=== PATIENT | male | born 1945 | race Caucasian/White ===

== ENCOUNTER 2016-12-16 03:29 | Emergency (ER) | payer MEDICARE | END 2016-12-16 06:02 | disposition home or self-care (01) | LOC: ER1 03:29 | DX: S30.861A Insect bite (nonvenomous) of abdominal wall, initial encounter (principal); S30.860A Insect bite (nonvenomous) of lower back and pelvis, initial encounter; M79.1 Myalgia; I25.2 Old myocardial infarction; E11.9 Type 2 diabetes mellitus without complications; I10 Essential (primary) hypertension; I25.810 Atherosclerosis of coronary artery bypass graft(s) without angina pectoris; J44.9 Chronic obstructive pulmonary disease, unspecified; Z87.891 Personal history of nicotine dependence; Z95.1 Presence of aortocoronary bypass graft; W57.XXXA Bitten or stung by nonvenomous insect and other nonvenomous arthropods, initial encounter | CPT/HCPCS: 99281 ==